=== PATIENT | male | born 1985 | race Caucasian/White ===

== ENCOUNTER → 2018-03-12 | Outpatient (CLI) | payer OTHER ==
[2018-03-12 13:22] LABS: HEMATOCRIT 39.6 % (42.0-52.0); HEMOGLOBIN 13.6 gm/dL (14.0-18.0); MCH 29.7 pg (26.0-34.0); MCHC 34.4 g/dL (28.0-37.0); MCV 86.4 fL (80.0-100.0); MPV 6.8 fl. (7.2-11.1); RBC 4.59 mil/uL (4.50-6.00); RDW-CV 13.3 % (10.5-14.5); WBC 5.3 thou/uL (4.0-11.0)
[2018-03-12 13:32] LABS: ALBUMIN 4.1 g/dL (3.4-5.0); ALKALINE PHOSPHATASE 34 U/L (46-116); ANION GAP 6 mmol/L (7-16); BUN 11 mg/dL (7-18); CALCIUM 8.9 mg/dL (8.5-10.1); CHLORIDE 104 mmol/L (98-107); CHOLESTEROL 178 mg/dL (<200); CO2 32 mmol/L (21-32); CREATININE 0.8 mg/dL (0.6-1.3); GLUCOSE 84 mg/dL (70-99); HDL CHOLESTEROL 67 mg/dL (>40); LDL CHOLESTEROL 106 mg/dL (<100); POTASSIUM 4.2 mmol/L (3.5-5.1); SGOT 15 U/L (15-37); SGPT 22 U/L (30-65); SODIUM 142 mmol/L (136-145); TC:HDL 2.7 Ratio (Not establshd); TOTAL BILIRUBIN 0.4 mg/dL (<0.1-1.0); TOTAL PROTEIN 7.6 g/dL (6.4-8.2); TRIGLYCERIDE 26 mg/dL (<150); VLDL 5 mg/dL (<40)
[2018-03-12 13:34] LABS: SERUM ASSESSMENT Clear
== END ==
LOC: M.LAB 12:49
PROVIDERS: Nurse Practitioner Family
DX: Z01.812 Encounter for preprocedural laboratory examination (principal)

== ENCOUNTER → 2018-06-02 | Outpatient (CLI) | payer OTHER ==
[2018-06-02 11:54] LABS: HEMATOCRIT 44.2 % (42.0-52.0); MCH 29.1 pg (26.0-34.0); MCV 85.5 fL (80.0-100.0); MPV 6.7 fl. (7.2-11.1); RBC 5.17 mil/uL (4.50-6.00); RDW-CV 12.9 % (10.5-14.5); WBC 3.8 thou/uL (4.0-11.0)
[2018-06-02 12:08] LABS: ALBUMIN 4.6 g/dL (3.4-5.0); CALCIUM 8.5 mg/dL (8.5-10.1); CREATININE 0.8 mg/dL (0.6-1.3); POTASSIUM 4.3 mmol/L (3.5-5.1); TOTAL BILIRUBIN 0.4 mg/dL (<0.1-1.0); TOTAL PROTEIN 8.1 g/dL (6.4-8.2)
== END ==
LOC: M.LAB 11:24
PROVIDERS: Nurse Practitioner Family
DX: R53.83 Other fatigue (principal)

== ENCOUNTER → 2018-06-12 | Outpatient (CLI) | payer OTHER ==
[2018-06-12 14:25] LABS: ABSOLUTE BASOPHILS 0.1 thou/uL (0.0-0.2); ABSOLUTE EOSINOPHILS 0.1 thou/uL (0.0-0.7); ABSOLUTE LYMPHOCYTES 2.1 thou/uL (0.8-5.3); ABSOLUTE MONOCYTES 0.5 thou/uL (0.0-1.2); ABSOLUTE NEUTROPHILS 2.3 thou/uL (1.6-8.1); EOSINOPHILS 2.5 %; HEMATOCRIT 45.4 % (42.0-52.0); HEMOGLOBIN 15.3 gm/dL (14.0-18.0); LYMPHOCYTES 41.4 %; MCH 28.9 pg (26.0-34.0); MCHC 33.7 g/dL (28.0-37.0); MCV 85.7 fL (80.0-100.0); MONOCYTES 10.5 %; NUCLEATED RBCS 0 /100WBC; PLATELET COUNT* 289 thou/uL (150-400); POLYS 44.6 %; RDW-CV 13.3 % (10.5-14.5); WBC 5.2 thou/uL (4.0-11.0)
== END ==
LOC: M.LAB 13:58
PROVIDERS: Nurse Practitioner Family
DX: R59.9 Enlarged lymph nodes, unspecified (principal)

== ENCOUNTER → 2018-08-07 | Outpatient (CLI) | payer OTHER | LOC: M.ULTRA 14:49 | DX: R59.1 Generalized enlarged lymph nodes (principal) ==

== ENCOUNTER → 2018-08-12 | Outpatient (CLI) | payer OTHER ==
[2018-08-12 12:00] LABS: HEMATOCRIT 42.5 % (42.0-52.0); HEMOGLOBIN 14.4 gm/dL (14.0-18.0); MCH 28.7 pg (26.0-34.0); MCHC 33.8 g/dL (28.0-37.0); MCV 84.8 fL (80.0-100.0); MPV 6.8 fl. (7.2-11.1); RBC 5.01 mil/uL (4.50-6.00); RDW-CV 13.6 % (10.5-14.5); WBC 4.1 thou/uL (4.0-11.0)
[2018-08-14 15:11] LABS: ANA INTERPRETATION Negative (Negative)
== END ==
LOC: M.LAB 11:00
PROVIDERS: Nurse Practitioner Family
DX: R59.9 Enlarged lymph nodes, unspecified (principal)

== ENCOUNTER → 2019-08-11 | Outpatient (CLI) | payer OTHER ==
[2019-08-11 15:50] LABS: CALCIUM 9.8 mg/dL (8.5-10.1); CREATININE 1.2 mg/dL (0.6-1.3)
== END ==
LOC: M.LAB 15:28
PROVIDERS: Nurse Practitioner Family
DX: R10.9 Unspecified abdominal pain (principal)

== ENCOUNTER → 2019-08-12 | Outpatient (CLI) | payer OTHER | LOC: M.CT 11:21 | DX: R31.9 Hematuria, unspecified (principal) ==

== ENCOUNTER → 2019-09-23 | Outpatient (CLI) | payer OTHER ==
--- NOTE | 2019-09-23 16:33 | 2DMMODE ---
[place] [address] 2 D/M-MODE ECHOCARDIOGRAM Name: GAMALIEL VERNON Room: [facility]#: [id number] Admission: 09/23/19 Attend Phys: Don Katz MD Discharge: Date of : 89 Date of Service: 09/23/19 1633 Report #: [id number] THIS REPORT FOR: //name// APPROVED REPORT Study performed: 09/23/2019 13:38:56 EXAM: Comprehensive 2D, Doppler, and color-flow Echocardiogram Patient Location: Out-Patient BSA: 2.10 HR: 77 bpm BP: 122/82 mmHg Other Information Study Quality: Good Indications Abnormal ECG PVCs 2D Dimensions IVSd: 10.75 (7-11mm) LVOT Diam: 20.67 (18-24mm) LVDd: 47.85 mm PWd: 8.79 (7-11mm) Ascending Ao: 32.48 (22-36mm) LVDs: 35.05 (25-40mm) Aortic Root: 32.30 mm Volumes Left Atrial Volume (Systole) LA ESV Index: 21.50 mL/m2 Aortic Valve AoV Peak Jermain.: 1.12 m/s AO Peak Gr.: 5.00 mmHg LVOT Max P.32 mmHg AO Mean Gr.: 2.81 mmHg LVOT Mean P.49 mmHg LVOT Max V: 0.91 m/s AO V2 VTI: 21.54 cm LVOT Mean V: 0.55 m/s CHUY (VTI): 2.71 cm2 LVOT V1 VTI: 17.39 cm Mitral Valve E/A Ratio: 1.82 MV Decel. Time: 159.54 ms MV E Max Jermain.: 0.70 m/s MV PHT: 46.27 [place] [address] 2 D/M-MODE ECHOCARDIOGRAM Name: GAMALIEL VERNON Room: [facility]#: [id number] Admission: 09/23/19 Attend Phys: Don Katz MD Discharge: Date of : 89 Date of Service: 09/23/19 1633 Report #: [id number] MVA (PHT): 4.76 cm2 TDI E/Lateral E': 3.50 E/Medial E': 5.00 Medial E' Jermain.: 0.14 m/s Lateral E' Jermain.: 0.20 m/s Pulmonary Valve PV Peak Jermain.: 0.91 m/s PV Peak Gr.: 3.32 mmHg Tricuspid Valve RAP Estimate: 5.00 mmHg TR Peak Gr.: 20.01 mmHg RVSP: 25.01 mmHg PA Pressure: 25.01 mmHg Left Ventricle The left ventricle is normal size. There is normal LV segmental wall motion. There is normal left ventricular wall thickness. Left ventricular systolic function is normal. LVEF is 50-55%. The left ventricular diastolic function is normal. Right Ventricle The right ventricle is normal size. The right ventricular systolic function is normal. Atria The left atrium size is normal. The right atrium size is normal. Aortic Valve The aortic valve is normal in structure. No aortic regurgitation is present. There is no aortic valvular stenosis. Mitral Valve The mitral valve is normal in structure. There is no mitral valve regurgitation noted. No evidence of mitral valve stenosis. Tricuspid Valve The tricuspid valve is normal in structure. Trace to mild tricuspid regurgitation. Pulmonic Valve The pulmonary valve is normal in structure. There is no pulmonic valvular regurgitation[place] [address] 2 D/M-MODE ECHOCARDIOGRAM Name: GAMALIEL VERNON Room: [facility]#: [id number] Admission: 09/23/19 Attend Phys: Don Katz MD Discharge: Date of : 89 Date of Service: 09/23/19 1633 Report #: [id number] The aortic root is normal in size. IVC is normal in size and collapses >50% with inspiration. Pericardium There is no pericardial effusion. <Conclusion> The left ventricle is normal size. There is normal left ventricular wall thickness. Left ventricular systolic function is normal. LVEF is 50-55%. The left ventricular diastolic function is normal. Trace to mild tricuspid regurgitation. IVC is normal in size and collapses >50% with inspiration. <ELECTRONICALLY SIGNED> By: Rafi Azevedo MD, FACC 09/23/19 1633 1633 1633 Rafi Azevedo MD, FACC /INF
== END ==
LOC: M.CRD 13:40
DX: I36.1 Nonrheumatic tricuspid (valve) insufficiency (principal)

== ENCOUNTER → 2020-05-25 | Outpatient (CLI) | payer OTHER | LOC: M.CT 10:37 | PROVIDERS: ATTEND Surgery | DX: K42.9 Umbilical hernia without obstruction or gangrene (principal); R89.8 Other abnormal findings in specimens from other organs, systems and tissues ==

== ENCOUNTER → 2020-06-13 | Outpatient (CLI) | payer OTHER ==
[~2020-06-13] MED LIST: AMITRIPTYLINE H10 M1 PO; AMPHETAMINE SAL10 MG PO; ARICEPT10 MG PO; PRAZOSIN HCL1 MG PO; TYLENOL EXTRA500 MG PO
== END ==
LOC: M.LAB 09:42
PROVIDERS: ATTEND Surgery
DX: Z01.812 Encounter for preprocedural laboratory examination (principal); Z20.828 Contact with and (suspected) exposure to other viral communicable diseases

== ENCOUNTER → 2020-12-26 | Outpatient (CLI) | payer OTHER ==
[2020-12-26 11:35] LABS: ABSOLUTE EOSINOPHILS 0.2 thou/uL (0.0-0.7); ABSOLUTE LYMPHOCYTES 1.4 thou/uL (0.8-5.3); ABSOLUTE MONOCYTES 0.5 thou/uL (0.0-1.2); BASOPHILS 0.9 %; EOSINOPHILS 4.4 %; HEMATOCRIT 42.9 % (42.0-52.0); HEMOGLOBIN 14.5 gm/dL (14.0-18.0); LYMPHOCYTES 34.1 %; MCH 29.2 pg (26.0-34.0); MCHC 33.8 g/dL (28.0-37.0); MCV 86.2 fL (80.0-100.0); MONOCYTES 13.1 %; MPV 6.5 fl. (7.2-11.1); NUCLEATED RBCS 0 /100WBC; PLATELET COUNT* 277 thou/uL (150-400); POLYS 47.5 %; RBC 4.98 mil/uL (4.50-6.00); RDW-CV 13.4 % (10.5-14.5); WBC 4.1 thou/uL (4.0-11.0)
[2020-12-26 11:46] LABS: ALBUMIN 4.3 g/dL (3.4-5.0); ALKALINE PHOSPHATASE 47 U/L (46-116); ANION GAP 10 mmol/L (7-16); BUN 18 mg/dL (7-18); CALCIUM 9.2 mg/dL (8.5-10.1); CHLORIDE 101 mmol/L (98-107); CHOLESTEROL 193 mg/dL (<200); CO2 30 mmol/L (21-32); CREATININE 1.2 mg/dL (0.6-1.3); GLUCOSE 85 mg/dL (70-99); HDL CHOLESTEROL 73 mg/dL (>40); LDL CHOLESTEROL 115 mg/dL (<100); POTASSIUM 4.2 mmol/L (3.5-5.1); SERUM ASSESSMENT Clear; SGOT 21 U/L (15-37); SGPT 40 U/L (30-65); SODIUM 141 mmol/L (136-145); TC:HDL 2.6 Ratio (Not establshd); TOTAL BILIRUBIN 0.5 mg/dL (<0.1-1.0); TOTAL PROTEIN 7.8 g/dL (6.4-8.2); TRIGLYCERIDE 29 mg/dL (<150); VLDL 6 mg/dL (<40)
== END ==
LOC: M.LAB 11:08
PROVIDERS: ATTEND Nurse Practitioner Family
DX: Z00.00 Encounter for general adult medical examination without abnormal findings (principal)

== ENCOUNTER 2021-03-31 12:01 | Emergency (ER) | payer OTHER ==
[~2021-03-31] VITALS: Ht 185.4 cm; Wt 93.0 kg
[2021-03-31] MEDS ORDERED: CLONAZEPAM 0.50.5 M1 PO (12:18)
[2021-03-31] MEDS ORDERED: ADDERALL 10 MG10 MG PO (12:19)
[2021-03-31] MEDS ORDERED: PERCOCET PO (15:26)
[2021-03-31] MEDS ORDERED: FLEXERIL PO (15:26)
[2021-03-31] MEDS ORDERED: PREDNISONE 20 M20 M1 PO (15:33)
[2021-03-31 15:55] VITALS: BP 117/85
== END 2021-03-31 15:56 | disposition home or self-care (01) ==
LOC: M.ERS 12:01
DX: M43.6 Torticollis (principal); Z88.2 Allergy status to sulfonamides; Z88.6 Allergy status to analgesic agent

== ENCOUNTER 2021-04-08 20:03 | Emergency (ER) | payer OTHER ==
[~2021-04-08] VITALS: Ht 190.5 cm; Wt 95.3 kg
[~2021-04-08 20:03] MED LIST changes: +ADDERALL 10 MG10 MG PO; +CLONAZEPAM 0.50.5 M1 PO; +FLEXERIL PO; +PERCOCET PO; +PREDNISONE 20 M20 M1 PO
[2021-04-08] MEDS ORDERED: FLEXERIL PO (21:31)
[2021-04-08] MEDS ORDERED: NORCO5 PO ×2 (21:31→21:42)
[2021-04-08] MEDS ORDERED: ZOFRAN ODT4 MG PO (21:32)
[2021-04-08 21:47] VITALS: BP 111/54
== END 2021-04-08 21:48 | disposition home or self-care (01) ==
LOC: M.ERS 20:03
DX: S29.012A Strain of muscle and tendon of back wall of thorax, initial encounter (principal); S13.4XXA Sprain of ligaments of cervical spine, initial encounter; Z88.2 Allergy status to sulfonamides; Z88.1 Allergy status to other antibiotic agents; Z88.8 Allergy status to other drugs, medicaments and biological substances; Z88.6 Allergy status to analgesic agent; V89.2XXA Person injured in unspecified motor-vehicle accident, traffic, initial encounter; Y93.89 Activity, other specified; Y92.89 Other specified places as the place of occurrence of the external cause; Y99.8 Other external cause status

== ENCOUNTER → 2021-04-20 | Outpatient (CLI) | payer OTHER ==
[~2021-04-20] MED LIST changes: +NORCO5 PO; +ZOFRAN ODT4 MG PO
== END ==
LOC: M.MRI 04-13 08:43
PROVIDERS: ATTEND Nurse Practitioner Family
DX: M47.814 Spondylosis without myelopathy or radiculopathy, thoracic region (principal); M47.816 Spondylosis without myelopathy or radiculopathy, lumbar region

== ENCOUNTER 2021-06-01 09:20 | Emergency (ER) | payer OTHER ==
[~2021-06-01] VITALS: Ht 185.4 cm; Wt 95.3 kg
[2021-06-01 11:05] VITALS: BP 128/100
== END 2021-06-01 11:06 | disposition home or self-care (01) ==
LOC: M.ERS 09:20
DX: Z20.822 Contact with and (suspected) exposure to COVID-19 (principal); Z88.1 Allergy status to other antibiotic agents; Z88.6 Allergy status to analgesic agent; Z88.8 Allergy status to other drugs, medicaments and biological substances; Z79.899 Other long term (current) drug therapy; Z87.820 Personal history of traumatic brain injury

== ENCOUNTER → 2021-07-06 | Outpatient (CLI) | payer OTHER ==
[2021-07-06 10:25] LABS: ABSOLUTE BASOPHILS 0.1 thou/uL (0.0-0.2); ABSOLUTE EOSINOPHILS 0.3 thou/uL (0.0-0.7); ABSOLUTE LYMPHOCYTES 1.4 thou/uL (0.8-5.3); ABSOLUTE MONOCYTES 0.5 thou/uL (0.0-1.2); ABSOLUTE NEUTROPHILS 2.6 thou/uL (1.6-8.1); BASOPHILS 1.1 %; EOSINOPHILS 5.3 %; HEMATOCRIT 42.4 % (42.0-52.0); HEMOGLOBIN 14.5 gm/dL (14.0-18.0); LYMPHOCYTES 29.1 %; MCH 29.3 pg (26.0-34.0); MCHC 34.3 g/dL (28.0-37.0); MCV 85.5 fL (80.0-100.0); MONOCYTES 10.2 %; MPV 6.5 fl. (7.2-11.1); NUCLEATED RBCS 0 /100WBC; PLATELET COUNT* 245 thou/uL (150-400); POLYS 54.3 %; RBC 4.96 mil/uL (4.50-6.00); RDW-CV 13.6 % (10.5-14.5); WBC 4.7 thou/uL (4.0-11.0)
[2021-07-06 10:46] LABS: ALBUMIN 4.4 g/dL (3.4-5.0); ALKALINE PHOSPHATASE 53 U/L (46-116); ANION GAP 5 mmol/L (7-16); BUN 14 mg/dL (7-18); CHLORIDE 99 mmol/L (98-107); CHOLESTEROL 217 mg/dL (<200); CO2 33 mmol/L (21-32); CREATININE 1.2 mg/dL (0.6-1.3); GLUCOSE 83 mg/dL (70-99); HDL CHOLESTEROL 58 mg/dL (>40); LDL CHOLESTEROL 149 mg/dL (<100); POTASSIUM 4.9 mmol/L (3.5-5.1); SGOT 23 U/L (15-37); SGPT 49 U/L (30-65); SODIUM 137 mmol/L (136-145); TC:HDL 3.7 Ratio (Not establshd); TOTAL BILIRUBIN 0.3 mg/dL (<0.1-1.0); TRIGLYCERIDE 53 mg/dL (<150); VLDL 11 mg/dL (<40)
[2021-07-06 10:47] LABS: SERUM ASSESSMENT Clear
[2021-07-06 23:06] LABS: GLYCOHEMOGLOBIN (HGB A1C) 5.4 % (4.8-5.6)
== END ==
LOC: M.LAB 09:58
PROVIDERS: ATTEND Family Medicine
DX: Z13.220 Encounter for screening for lipoid disorders (principal); Z13.29 Encounter for screening for other suspected endocrine disorder; Z00.00 Encounter for general adult medical examination without abnormal findings

== ENCOUNTER → 2021-08-24 | Outpatient (CLI) | payer OTHER | LOC: M.RAD 11:42 | PROVIDERS: ATTEND Nurse Practitioner Family | DX: M25.562 Pain in left knee (principal) ==

== ENCOUNTER → 2021-08-28 | Outpatient (CLI) | payer OTHER | LOC: M.MRI 11:10 | PROVIDERS: ATTEND Nurse Practitioner Family | DX: M25.562 Pain in left knee (principal) ==